=== PATIENT | female | born 1995 | race Caucasian/White ===

== ENCOUNTER 2020-01-29 18:27 | Emergency (ER) | payer SELFPAY ==
[2020-01-29] MEDS ORDERED: Acetaminophen 325 MG TAB ONE (19:52)
--- NOTE | 2020-01-29 20:22 | CT ---
Exam: Head CT without contrast HISTORY: Trauma. Altercation. COMPARISON: none FINDINGS: Hemorrhage: No intraparenchymal hemorrhage or extra-axial hematoma. Brain parenchyma: Cortical barger-white matter differentiation is preserved. No mass effect or midline shift. Basilar cisterns are patent. Ventricular system: Ventricles and sulci are patent and symmetric. Calvarium: Intact Scalp: Large right occipital parietal scalp hematoma. Sinuses and mastoid air cells: Adequate aeration. IMPRESSION: 1. Right scalp hematoma 2. No intracranial post traumatic sequelae.
--- NOTE | 2020-01-29 20:27 | CT ---
Exam: Facial bone CT without contrast HISTORY: Altercation. Pain. FINDINGS: Visualized brain parenchyma is unremarkable Bilateral ocular lenses are appropriately located. Both globes are intact. Retrobulbar fat is preserv ed. Symmetric attenuation of the optic nerves and ocular rectus muscles. Aerodigestive tract is patent. There is fullness of the left and right palatine tonsils. Symmetric attenuation of the salivary glands Bilateral mandibular condyles are appropriately located. Intact maxilla and mandible. Intact pterygoi d plates Intact zygomatic arches Coronal images demonstrate patent bilateral ostiomeatal complexes. Intact and midline nasal septum Osseous margins of the sinuses and orbits are maintained. Nasal bones are intact. Adequate aeration visualized nasal sinuses and mastoid air cells Incidentals: There is a large dental caries involving the second right maxillary molar tooth. IMPRESSION: 1. No maxillofacial fracture. 2. Right maxillary dental caries.
== END 2020-01-29 22:05 | disposition home or self-care (01) ==
LOC: ERS 18:27
DX: S00.03XA Contusion of scalp, initial encounter (principal); S00.81XA Abrasion of other part of head, initial encounter; F41.9 Anxiety disorder, unspecified; F31.9 Bipolar disorder, unspecified; F17.210 Nicotine dependence, cigarettes, uncomplicated; Y04.0XXA Assault by unarmed brawl or fight, initial encounter
CPT/HCPCS: 70450; 70486